=== PATIENT | male | born 1955 | race Caucasian/White ===

== ENCOUNTER 2018-04-22 10:05 | Day surgery (SDC) | payer OTHER ==
[~2018-04-22] VITALS: Ht 182.9 cm; Wt 76.3 kg
[~2018-04-22 10:05] MED LIST: ASPIR-LOW81 MG PO; ATORVASTATIN CA20 MG PO; MULTIVITAMIN1 EAC2 PO; NITROGLYCERIN0.4 MG SL; VITAMIN D35000 UNIT PO
[2018-04-22 16:30] VITALS: BP 129/77
[2018-04-22 16:42] VITALS: BP 129/77
[2018-04-22 19:32] LABS: INTER. NORMALIZED RATIO 1.1
[2018-04-22 19:35] LABS: PTT 27.7 SEC (25-37)
[2018-04-22 20:00] VITALS: BP 118/75
[2018-04-22 23:04] VITALS: BP 125/87
[2018-04-23 02:32] VITALS: BP 113/73
[2018-04-23 07:03] VITALS: BP 123/77
[2018-04-23] MEDS ORDERED: LOPRESSOR25 MG PO (09:00)
== END 2018-04-23 11:09 | disposition short-term general hospital (02) ==
LOC: CATH 10:05 → 2SOUTH 12:47 → 4EAST 12:47 → ENRESERV 12:48 → 4EAST 16:26
PROVIDERS: Internal Medicine Cardiovascular Disease
DX: I25.118 Atherosclerotic heart disease of native coronary artery with other forms of angina pectoris (principal); E78.5 Hyperlipidemia, unspecified; Z82.49 Family history of ischemic heart disease and other diseases of the circulatory system
CPT/HCPCS: 85610; 85730; C1769; C1887; G0378; J1200; J1644; J2250; J3010; J7040